=== PATIENT | female | born 1975 | race Caucasian/White ===

== ENCOUNTER 2017-08-21 11:04 | Outpatient (CLI) | payer OTHER | END 2017-08-21 11:05 | disposition home or self-care (01) | LOC: CTENTCT 11:04 | PROVIDERS: ATTEND Specialist | DX: J32.8 Other chronic sinusitis (principal) | CPT/HCPCS: 70486 ==

== ENCOUNTER 2019-04-09 17:50 | Emergency (ER) | payer OTHER ==
--- NOTE | 2019-04-09 18:48 | RAD ---
EXAM: CHEST ONE VIEW HISTORY: Chest pain COMPARISON: None FINDINGS: The cardiac silhouette and pulmonary vasculature is within normal limits. The lungs are clear. The os seous structures are intact. Tiny metallic density overlies the lower right neck which overlies the right lateral aspect of the C6 vertebral body. This may be related to prior postsurgical change. IMPRESSION: 1. No acute cardiopulmonary process. 2. Tiny linear metallic density overlying the right aspect of the C6 vertebral body. This may be rela dominic to prior postsurgical change, but clinical correlation is recommended to exclude possibility of a tiny metallic foreign body.
[2019-04-09] MEDS ORDERED: Ketorolac Tromethamine 30 MG/ML VIAL ONE (19:11)
[2019-04-09 19:18] LABS: Hemoglobin 15.5 g/dL (12.0-16.0); Mean Corpuscular HGB CONC 33.6 g/dL (32.0-36.0); Mean Corpuscular Hemoglobin 29.4 pg (27.0-31.0); Mean Corpuscular Volume 87.4 fL (78.0-98.0); RBC Distribution Width 11.9 % (11.5-14.5); Red Blood Cell (RBC) Count 5.28 mill/uL (4.20-5.40)
[2019-04-09 19:36] LABS: #Eosinphils 0.2 thou/uL (0.0-0.7); #Lymphocytes 1.7 thou/uL (1.20-3.40); %Basophils 0.4 % (0.0-1.0); %Eosinophils 1.8 % (0.0-10.0); %Lymphocytes 14.2 % (21.0-51.0); %Monocytes 8.7 % (0.0-10.0); %Neutrophils 74.9 % (42.0-75.0); Mean Platelet Volume 9.8 fL (7.4-10.4); Platelet Count 80 thou/uL (130-400); Platelet Morphology Comment Appears Decreased
[2019-04-09 19:37] LABS: ALT (SGPT) 20 U/L (8-55); AST (SGOT) 33 U/L (5-34); Albumin 4.9 g/dL (3.5-5.0); Alkaline Phosphatase 103 U/L (40-150); Anion Gap 17 mmol/L (10-20); BUN (Urea Nitrogen) 14 mg/dL (7.0-18.7); Bilirubin, Total 0.6 mg/dL (0.2-1.2); Calc. Creatinine Clearance 0 mL/min (70-130); Calcium 10.6 mg/dL (7.8-10.44); Carbon Dioxide 22 mmol/L (22-29); Chloride 99 mmol/L (98-107); Estimated GFR-MDRD 81; Globulin 3.3 g/dL (2.4-3.5); Glucose 101 mg/dL (70-105); Potassium 4.9 mmol/L (3.5-5.1); Protein, Total 8.2 g/dL (6.0-8.3); Sodium 133 mmol/L (136-145)
[2019-04-09] MEDS ORDERED: Lorazepam 2 MG/ML VIAL ONE (20:50)
[2019-04-09] MEDS ORDERED: Morphine 4 MG/ML VIAL ONE (21:38)
[2019-04-09] MEDS ORDERED: Ondansetron PF 4 MG/2 ML Vial ONE (21:38)
--- NOTE | 2019-04-10 07:33 | CT ---
PRELIMINARY REPORT/[facility]/EMERGENCY AFTER HOURS PROCEDURE: EXAM: CT Angiography Chest With Contrast EXAM DATE/TIME: 04/09/2019 11:54 PM CLINICAL HISTORY: 43 years old, female; Signs and symptoms; Dyspnea; Patient HX: F43 presents to ED with C/O chest pressure & dizziness onset today, that began after sensation of left arm tingling onset 1000. PT reports that the pain worked its way upward. PT reports currently having SOB with pain with deep breath. PT reports she has had symptoms like these before when she had high BP. PT denies nausea, cough, or fever. PT reports using a vape pen. Denies recent travel or surgery. TECHNIQUE: Imaging protocol: Axial computed tomographic angiography images of the chest with intravenous contrast using CT angiography protocol. Coronal and sagittal reformatted images were created and reviewed. 3D rendering: MIP reconstructed images were created and reviewed. COMPARISON: No relevant prior studies available. FINDINGS: Pulmonary arteries: No pulmonary emboli. Aorta: No aortic aneurysm. No aortic dissection. Lungs: Mild dependent atelectasis dorsally bilaterally. Pleural space: No pneumothorax. No pleural effusion. Heart: No cardiomegaly. No pericardial effusion. Liver: Fatty liver. Lymph nodes: Unremarkable. No enlarged lymph nodes. Bones/joints: Unremarkable. No acute fracture. Soft tissues: Breast prostheses appear grossly intact. IMPRESSION: No pulmonary emboli. No acute disease identified. Thank you for allowing us to participate in the care of your patient. Dictated and Authenticated by: Eyad Mendoza MD 04/10/2019 12:17 AM Central Time ([place] & [place]) FINAL REPORT CTA Angio Chest W WO Con History: [Chest pain and dizziness] Comparison: Chest radiograph same day Findings: CT angiogram of the chest performed after the intravenous administration of contrast. 3-D r echo provided. Impression: The findings and impression are concordant with the preliminary report. Transcribed Date/Time: 04/10/2019 7:42 AM
--- NOTE | 2019-04-11 15:14 | EKG ---
Test Reason : Blood Pressure : / mmHG Vent. Rate : 106 BPM Atrial Rate : 106 BPM P-R Int : 150 ms QRS Dur : 080 ms QT Int : 346 ms P-R-T Axes : 035 001 089 degrees QTc Int : 459 ms Sinus tachycardia Cannot rule out Anterior infarct , age undetermined Abnormal ECG Confirmed by SHAHAB MALCOLM ([id number]), senior technical editor AUGUSTO ROJAS ([id number]) on 04/11/2019 3:13:52 PM Referred By: Confirmed By:SHAHAB MALCOLM
== END 2019-04-10 00:50 | disposition home or self-care (01) ==
LOC: ERS 17:50
DX: R07.89 Other chest pain (principal); I10 Essential (primary) hypertension; E78.5 Hyperlipidemia, unspecified; G43.909 Migraine, unspecified, not intractable, without status migrainosus; F17.290 Nicotine dependence, other tobacco product, uncomplicated; Z79.899 Other long term (current) drug therapy
CPT/HCPCS: 71045; 71275; 80053; 84484; 85025; 85379; 93005; 96361; 96374; 96375; J1885; J2060; J2270; J2405

== ENCOUNTER 2020-08-08 16:33 | Inpatient (IN) | payer OTHER ==
[2020-08-08 17:08] LABS: #Basophils 0.1 thou/uL (0.0-0.2); #Eosinphils 0.1 thou/uL (0.0-0.7); #Monocytes 0.6 thou/uL (0.11-0.59); #Neutrophils 3.5 thou/uL (1.40-6.50); %Basophils 1.6 % (0.0-1.0); %Eosinophils 1.4 % (0.0-10.0); %Monocytes 10.9 % (0.0-10.0); %Neutrophils 67.1 % (42.0-75.0); Mean Corpuscular HGB CONC 33.9 g/dL (32.0-36.0); Mean Corpuscular Hemoglobin 29.8 pg (27.0-31.0); Mean Corpuscular Volume 87.9 fL (78.0-98.0); Mean Platelet Volume 7.5 fL (7.4-10.4); Platelet Count 317 thou/uL (130-400); RBC Distribution Width 11.8 % (11.5-14.5); Red Blood Cell (RBC) Count 5.03 mill/uL (4.20-5.40); White Blood Cell (WBC) Count 5.1 thou/uL (4.8-10.8)
[2020-08-08 17:29] LABS: ALT (SGPT) 13 U/L (8-55); AST (SGOT) 18 U/L (5-34); Albumin 4.5 g/dL (3.5-5.0); Alkaline Phosphatase 100 U/L (40-110); Anion Gap 12 mmol/L (10-20); BUN (Urea Nitrogen) 19 mg/dL (7.0-18.7); Bilirubin, Total 0.2 mg/dL (0.2-1.2); CK (CPK) 41 U/L (29-168); Calc. Creatinine Clearance 0 mL/min (70-130); Calcium 9.6 mg/dL (7.8-10.44); Carbon Dioxide 27 mmol/L (22-29); Chloride 101 mmol/L (98-107); Estimated GFR-MDRD 69; Glucose 148 mg/dL (70-105); Potassium 3.6 mmol/L (3.5-5.1); Protein, Total 7.5 g/dL (6.0-8.3); Sodium 136 mmol/L (136-145)
[2020-08-08 17:32] LABS: Acetaminophen Less than 6.0 mcg/mL (10.0-30.0); Alcohol Less than 10 mg/dL (Less than 10); Salicylate Less than 8.0 mg/dL (15.0-30.0)
--- NOTE | 2020-08-08 17:46 | RAD ---
Exam: Chest one view HISTORY:Confirm NG tube placement Comparison: 04/09/2019 FINDINGS: Lines and tubes: Nasogastric tube extends beyond the diaphragm. Distal tip appears to be in the gastr ic antrum. Cardiac silhouette: Normal Aorta: Unremarkable Pulmonary vessels: Normal Costophrenic angles: Clear LUNGS: No masses or consolidation. Pneumothorax: None Osseous abnormalities: None IMPRESSION: 1. Nasogastric tube terminating in the gastric antrum.
[2020-08-08] MEDS ORDERED: Scopolamine 1.5 mg/72 hour Patch TD PRN (18:09)
[2020-08-08] MEDS ORDERED: Naloxone HCl 0.4 mg/ml Vial ONE (18:10)
[2020-08-08 18:32] LABS: Bilirubin Negative (Negative); Blood, Urine Negative (Negative); Clarity Clear (Clear); Glucose, Urine (Dipstick) Normal (Negative); Ketone, Urine 10 mg/dL (Negative); Leukocyte Negative Leu/uL (Negative); Nitrite Negative (Negative); Protein, Urine (Dipstick) Negative (Neg-Trace); Specific Gravity, Urine 1.013 (1.002-1.036); Urobilinogen Normal mg/dL (Less than 2); pH, Urine 6.5 (5.0-9.0)
[2020-08-08 18:41] LABS: Amphetamine Not Detected (NotDetected); Barbiturates Screen Not Detected (NotDetected); Benzodiazepine Screen Not Detected (NotDetected); Cocaine Metabolite Screen Not Detected (NotDetected); Medtox Control Line Valid? VALID (VALID); Medtox Reader # READER 4; Methadone Not Detected (NotDetected); Methamphetamine Not Detected (NotDetected); Opiate Screen Not Detected (NotDetected); Oxycodone Screen Not Detected (NotDetected); Phencyclidine (PCP) Not Detected (NotDetected); THC/Cannabinoid Screen Detected (NotDetected); Tricyclic Screen Not Detected (NotDetected)
[2020-08-08] MEDS: Sodium Chloride 0.9% 1,000 ML IV SCH (19:43)
[2020-08-08 23:33] LABS: Anion Gap 14 mmol/L (10-20); BUN (Urea Nitrogen) 13 mg/dL (7.0-18.7); Calc. Creatinine Clearance 102 mL/min (70-130); Calcium 8.3 mg/dL (7.8-10.44); Carbon Dioxide 22 mmol/L (22-29); Chloride 106 mmol/L (98-107); Estimated GFR-MDRD 80; Glucose 111 mg/dL (70-105); Potassium 3.2 mmol/L (3.5-5.1); Sodium 139 mmol/L (136-145)
--- NOTE | 2020-08-09 00:37 | HP ---
CHIEF COMPLAINT: Suicidal attempt with drug overdose. HISTORY OF PRESENT ILLNESS: The patient is a 44-year-old female with past medical history of hypertension, hyperlipidemia, hypothyroidism, migraines, and depression, who was brought to the ER by EMS after ingesting multiple medications in a suicidal attempt. The patient states that she has been having trouble at home with her and does not want to be here anymore. The patient took medications that belong to her and her . Those medications were cefdinir, metoprolol succinate, atorvastatin, ketorolac, tramadol, promethazine, fluoxetine, lorazepam, diazepam, cyclobenzaprine, Zofran, naproxen, doxycycline, pantoprazole, prednisone, Tylenol No.4, aspirin, and butalbital. Empty bottles of all those medications were available in the ER. On presentation, the patient seems to be mildly lethargic, but able to answer all the questions appropriately. She has a flat affect. Poison Control was contacted and NG tube was placed, and the patient was given activated charcoal. REVIEW OF SYSTEMS: Negative except as noted in HPI. PAST MEDICAL HISTORY: As noted above. PAST SURGICAL HISTORY: Tonsillectomy, hysterectomy, stone removal, appendectomy, and double mastectomy with reconstruction. SOCIAL HISTORY: The patient denies alcohol use, illicit drug use, and is a current tobacco smoker. FAMILY HISTORY: Noncontributory for her current presentation. PHYSICAL EXAMINATION: GENERAL: The patient is alert and oriented x3. HEENT: Head is normocephalic and atraumatic. Extraocular muscles are intact. NECK: Supple. CHEST: Auscultation is clear bilaterally. CARDIOVASCULAR: Revealed normal S1 and S2. No murmurs, rubs, or gallops. Regular rate and rhythm. ABDOMEN: Soft, nontender, and nondistended. Bowel sounds are audible. NEUROLOGIC: Unremarkable. LABORATORY DATA: The patient's CBC and CMP were largely unremarkable and her urine tox screen was negative at that time. ASSESSMENT: 1. Suicidal attempt with drug overdose. 2. Overdose of multiple medications including nonsteroidal anti-inflammatory medications, benzodiazepines, calcium channel blockers and beta-blockers in addition to opioids. 3. History of hypertension. 4. History of hyperlipidemia. 5. History of depression. PLAN: The patient will be monitored closely in the intensive care unit. Potential side effects include bradycardia, hypotension, respiratory arrest, acute renal failure, and QTc prolongation. BMP will be monitored q.6 hours. We will also check her EKG periodically to rule out arrhythmia and QTc prolongation. I will avoid using Zofran, promethazine, or metoclopramide for management of nausea to decrease risk of QTc prolongation. I will use scopolamine patch as needed for nausea. The patient will be hydrated with normal saline at 150 mL/h. Critical Care Service were notified of the patient's admission to the ICU and her current condition. SCDs for deep venous thrombosis prophylaxis. Further recommendations depend on her clinical course. Job ID: [id number] [facility]ITAL[facility]
[2020-08-09] MEDS: Sodium Chloride 0.9% 1,000 ML IV SCH ×3 (02:15→15:20)
[2020-08-09] MEDS ORDERED: Ondansetron PF 4 MG/2 ML Vial IVP SCH (03:45)
[2020-08-09 04:48] LABS: Band 1 % (5-11); Hemoglobin 14.2 g/dL (12.0-16.0); Lymphocytes 34 % (21-51); MDiff Complete? YES; Mean Corpuscular HGB CONC 32.9 g/dL (32.0-36.0); Mean Corpuscular Hemoglobin 29.3 pg (27.0-31.0); Mean Platelet Volume 7.9 fL (7.4-10.4); Monocytes 10 % (0-10); Neutrophil 55 % (42-75); Platelet Count 311 thou/uL (130-400); Platelet Morphology Comment Appears Adequate; RBC Morphology Normal; Red Blood Cell (RBC) Count 4.85 mill/uL (4.20-5.40); White Blood Cell (WBC) Count 6.5 thou/uL (4.8-10.8)
[2020-08-09 06:38] LABS: ALT (SGPT) 14 U/L (8-55); AST (SGOT) 16 U/L (5-34); Albumin 3.5 g/dL (3.5-5.0); Alkaline Phosphatase 79 U/L (40-110); Anion Gap 13 mmol/L (10-20); BUN (Urea Nitrogen) 12 mg/dL (7.0-18.7); Bilirubin, Total 0.2 mg/dL (0.2-1.2); Calc. Creatinine Clearance 101 mL/min (70-130); Calcium 8.2 mg/dL (7.8-10.44); Carbon Dioxide 22 mmol/L (22-29); Chloride 108 mmol/L (98-107); Estimated GFR-MDRD 78; Globulin 2.4 g/dL (2.4-3.5); Glucose 88 mg/dL (70-105); Potassium 3.7 mmol/L (3.5-5.1); Protein, Total 5.9 g/dL (6.0-8.3); Sodium 139 mmol/L (136-145)
--- NOTE | 2020-08-09 11:29 | CON ---
DATE OF CONSULTATION: 08/09/2020 REASON FOR CONSULTATION: Polysubstance overdose. HISTORY OF PRESENT ILLNESS: The patient is a 44-year-old female, who presented to the emergency room last night after ingesting multiple medications including Lexapro, metoprolol, atorvastatin, Toradol, tramadol, promethazine, fluoxetine, lorazepam, diazepam, cyclobenzaprine, Zofran, naproxen, doxycycline, Protonix, prednisone, Tylenol #4, aspirin, and butalbital. It is unknown how much of each she ingested. She had an NG tube placed and was given activated charcoal. I cannot see that she has developed any significant bradyarrhythmias overnight. PAST MEDICAL HISTORY: Hypertension. PAST SURGICAL HISTORY: 1. Tonsillectomy. 2. Hysterectomy. 3. Appendectomy. 4. Mastectomy with reconstruction. SOCIAL HISTORY: Occasionally consumes alcohol. She runs a bar. She uses a Vapen. She occasionally smokes marijuana. FAMILY MEDICAL HISTORY: Unremarkable. ALLERGIES: NONE. REVIEW OF SYSTEMS: No fever, chills, nausea, vomiting, hematemesis, melena, hematochezia, hematuria, or dysuria. PHYSICAL EXAMINATION: VITAL SIGNS: Pulse has been consistently in the 60s, O2 saturation 100%, blood pressure 125/87, respiratory rate 13. HEENT: Unremarkable. NECK: No adenopathy or JVD. LUNGS: Clear. CARDIAC: S1, S2. Regular. ABDOMEN: Soft and nontender to palpation. EXTREMITIES: No clubbing, cyanosis, or edema. NEUROLOGIC: Nonfocal. She is alert and oriented x3. Appears in no distress. LABORATORY DATA: Sodium 139, potassium 3.7, chloride 108, CO2 of 22, BUN 12, creatinine 0.8, glucose 88. White blood cell count 6.5, hematocrit 43.2, and platelet count 311. Tox screen was positive for cannabinoids. Interestingly, was negative for benzodiazepines and tricyclics. ASSESSMENT: Reported polysubstance overdose without any sequelae so far. PLAN: 1. Continue monitoring in ICU for 24 more hours. 2. IV fluids. Job ID: [id number]
[2020-08-09 11:47] VITALS: BMI 23.8
--- NOTE | 2020-08-09 13:26 | PDOC.HOSPP ---
- Subjective Encounter Date: 08/09/20 Encounter Time: 11:15 Subjective: oriented well this morning, no sob or chest pain or palp at bedside - Objective Vital Signs & Weight: Vital Signs (12 hours) Temp Pulse Resp BP Pulse Ox 08/09/20 13:20 98.3 F 64 15 132/92 H 97 08/09/20 10:36 65 15 125/86 100 08/09/20 08:00 98.3 F 100 Weight Admit Weight 155 lb 6.814 oz Weight 156 lb 8.451 oz Most Recent Monitor Data Heart Rate from ECG 68 NIBP 146/99 NIBP BP-Mean 114 Respiration from ECG 15 SpO2 100 I&O: 08/08/20 08/09/20 08/10/20 06:59 06:59 06:59 Intake Total 1582 Output Total 1010 250 Balance 572 -250 Result Diagrams: 08/09/20 03:10 08/09/20 05:23 Additional Labs: Accuchecks 08/09/20 08/09/20 08/09/20 13:12 05:57 00:11 POC Glucose 103 H 87 92 08/08/20 08/08/20 22:17 19:53 POC Glucose 82 130 H Hospitalist ROS - Medication Medications: Active Medications Generic Name Dose Route Start Last Admin Trade Name Freq PRN Reason Stop Dose Admin Sodium Chloride 1,000 mls @ 150 mls/hr 08/08/20 18:15 08/09/20 08:45 Normal Saline 0.9% IV 1,000 mls .[id number] SALLY Administration - Exam General Appearance: awake alert Eye: PERRL, anicteric sclera ENT: no oropharyngeal lesions, dry oral mucosa Neck: supple, no JVD Heart: RRR, no murmur Respiratory: no wheezes, no rales Gastrointestinal: soft, non-tender, non-distended, normal bowel sounds Extremities: no cyanosis, no edema Neurological: cranial nerve grossly intact, no focal deficits Psychiatric: A&O x 3 Hosp A/P (1) Drug overdose, intentional Code(s): T50.902A - POISONING BY UNSP DRUG/MEDS/BIOL SUBST, SELF-HARM, INIT Status: Acute Qualifiers: Encounter type: subsequent encounter Qualified Code(s): T50.902D - Poisoning by unspecified drugs, medicaments and biological substances, intentional self-harm, subsequent encounter (2) Suicidal ideation Code(s): R45.851 - SUICIDAL IDEATIONS Status: Acute (3) Major depression Code(s): F32.9 - MAJOR DEPRESSIVE DISORDER, SINGLE EPISODE, UNSPECIFIED Status: Acute Qualifiers: Active/Remission status: currently active Major depression episode severity: severe Psychotic features: without psychotic features (4) HTN (hypertension) Code(s): I10 - ESSENTIAL (PRIMARY) HYPERTENSION Status: Chronic Qualifiers: Hypertension type: essential hypertension Qualified Code(s): I10 - Essential (primary) hypertension (5) Dyslipidemia Code(s): E78.5 - HYPERLIPIDEMIA, UNSPECIFIED Status: Chronic - Plan hemostable oral diet no prior h/o suicidal attempts or psychiatric hospitalization covrajesh 19 made their bussiness broke x 5 months, which led to arguments with and finally she decided to take meds to end her life may tx to telemetry, needs another 24hrs of monitoring before MR eval
[2020-08-09 16:26] LABS: SARS-CoV-2 MS2 Positive; SARS-CoV-2 N Gene Negative; SARS-CoV-2 S Gene Negative; SARS-CoV-2 by NAA Not Detected (NotDetected); SARS-CoV-2 orf1ab Negative
[2020-08-10 04:35] LABS: Eosinophils 5 % (0-10); Hemoglobin 13.5 g/dL (12.0-16.0); Lymphocytes 52 % (21-51); MDiff Complete? YES; Mean Corpuscular HGB CONC 32.8 g/dL (32.0-36.0); Mean Corpuscular Hemoglobin 29.1 pg (27.0-31.0); Mean Corpuscular Volume 88.6 fL (78.0-98.0); Monocytes 9 % (0-10); Neutrophil 34 % (42-75); Platelet Count 291 thou/uL (130-400); Platelet Morphology Comment Appears Adequate; RBC Distribution Width 11.9 % (11.5-14.5); Red Blood Cell (RBC) Count 4.63 mill/uL (4.20-5.40); White Blood Cell (WBC) Count 5.6 thou/uL (4.8-10.8)
[2020-08-10] MEDS: Sodium Chloride 0.9% 1,000 ML IV SCH (06:04)
[2020-08-10] MEDS ORDERED: Bisacodyl 10 MG SUPP PR PRN (11:28)
--- NOTE | 2020-08-10 12:55 | PDOC.HOSPP ---
- Subjective Encounter Date: 08/10/20 Encounter Time: 11:00 Subjective: no sob or chest pain or palp or nausea/abd pain is eating well and amb in room - Objective Vital Signs & Weight: Vital Signs (12 hours) Temp Pulse Resp BP Pulse Ox 08/10/20 12:21 98.3 F 55 L 12 136/90 99 08/10/20 08:03 98.3 F 57 L 12 126/81 99 08/10/20 04:00 98.4 F 56 L 20 120/78 97 Weight Admit Weight 155 lb 6.814 oz Weight 163 lb 8 oz Most Recent Monitor Data Heart Rate from ECG 68 NIBP 146/99 NIBP BP-Mean 114 Respiration from ECG 15 SpO2 100 I&O: 08/09/20 08/10/20 08/11/20 06:59 06:59 06:59 Intake Total 1582 Output Total 1010 250 Balance 572 -250 Result Diagrams: 08/10/20 03:24 08/09/20 05:23 Additional Labs: Accuchecks 08/10/20 08/10/20 08/09/20 08:18 06:06 20:33 POC Glucose 167 H 83 109 H 08/09/20 08/09/20 17:13 13:12 POC Glucose 99 103 H - Exam General Appearance: awake alert Eye: PERRL, anicteric sclera ENT: no oropharyngeal lesions, moist mucosa Neck: supple, no JVD Heart: RRR, no murmur Respiratory: no wheezes, no rales Gastrointestinal: soft, non-tender, non-distended, normal bowel sounds Extremities: no cyanosis, no edema Neurological: cranial nerve grossly intact, no focal deficits Psychiatric: A&O x 3 Hosp A/P (1) Drug overdose, intentional Code(s): T50.902A - POISONING BY UNSP DRUG/MEDS/BIOL SUBST, SELF-HARM, INIT Status: Resolved Qualifiers: Encounter type: subsequent encounter Qualified Code(s): T50.902D - Poisoning by unspecified drugs, medicaments and biological substances, i ntentional self-harm, subsequent encounter (2) Suicidal ideation Code(s): R45.851 - SUICIDAL IDEATIONS Status: Resolved (3) Major depression Code(s): F32.9 - MAJOR DEPRESSIVE DISORDER, SINGLE EPISODE, UNSPECIFIED Status: Acute Qualifiers: Active/Remission status: currently active Major depression episode severity: severe Psychotic features: without psychotic features (4) HTN (hypertension) Code(s): I10 - ESSENTIAL (PRIMARY) HYPERTENSION Status: Chronic Qualifiers: Hypertension type: essential hypertension Qualified Code(s): I10 - Essential (primary) hypertension (5) Dyslipidemia Code(s): E78.5 - HYPERLIPIDEMIA, UNSPECIFIED Status: Chronic - Plan hemostable oral diet no prior h/o suicidal attempts or psychiatric hospitalization covid 19 made their bussiness broke x 5 months, which led to arguments with and finally she decided to take meds to end her life may dc anytime if cleared by
[2020-08-10] MEDS ORDERED: Polyethylene Glycol 3350 17 GM Packet PO SCH (13:45)
--- NOTE | 2020-08-10 15:48 | DIS ---
DATE OF ADMISSION: 08/08/2020 DATE OF DISCHARGE: 08/10/2020 DISCHARGE DISPOSITION: Home. PRIMARY DISCHARGE DIAGNOSES: Intentional prescription medication overdose with suicidal intent, severe depression, hypertension, dyslipidemia. PROCEDURES DONE DURING HOSPITALIZATION: Chest x-ray done on the day of admission showed no acute cardiopulmonary abnormality. H and H 13 and 41, platelet count 291, MCV is 88. BUN 12, creatinine 0.8, albumin 3.5. Liver enzymes within normal limits. TSH 3.41. Urine drug screen was positive for cannabinoids. Plasma alcohol less than 10. Acetaminophen less than 6. Salicylates less than 8. COVID-19 PCR was not detected on 08/08/2020. DISCHARGE PLAN: [facility] will be following up with the patient on a daily basis. She needs to follow up with her primary care physician in 1 week. [facility] will also set her up for counseling sessions and outpatient appointment with psychiatrist shortly. BRIEF COURSE DURING HOSPITALIZATION: The patient initially was brought to the emergency room on 08/09/2020 after EMS brought her with history of the patient ingesting multiple medications with suicidal intent. The patient apparently took a combination of Omnicef, metoprolol succinate, atorvastatin, ketorolac, Ultram, promethazine, fluoxetine, lorazepam, diazepam, Flexeril, Zofran, Naprosyn, doxycycline, Protonix, prednisone, Tylenol No.4, aspirin, and butalbital. It is unclear how many pills of all of this the patient took, but apparently all the bottles were empty when EMS arrived at home. She was mildly lethargic when EMS arrived. Poison Control was contacted on arrival in the ER and an NG tube was placed and she was given activated charcoal. She was initially admitted to ICU. She was closely monitored on telemetry. She has not had any untoward events. She was later downgraded to telemetry. She has remained hemodynamically stable. She is ambulating and eating well prior to discharge. [facility] was consulted this afternoon. They have a safety plan and [facility] will be visiting her on a daily basis and they will also arrange for her to get counseling and start outpatient psychiatrist appointment. 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 She has never been hospitalized in a psychiatric facility in the past. At the time of discharge, she does not have any suicidal ideation or intent or plan. Please see a [id number] documentation on [employer] for the day of discharge. Job ID: [id number]
[2020-08-10 16:24] VITALS: BP 153/97; TEMP 98
[2020-08-10] MEDS ORDERED: Docusate 100 MG CAP PO SCH (21:00)
[2020-08-11] MEDS ORDERED: Polyethylene Glycol 3350 17 GM Packet PO SCH (09:00)
[2020-08-11] MEDS ORDERED: Escitalopram Oxalate 20 mg Tablet PO SCH (09:00)
--- NOTE | 2020-08-12 06:32 | PQF ---
CLINICAL DOCUMENTATION CLARIFICATION FORM: Dear : Tommie Lieberman Date / Time: 08/12/20 0631 Please exercise your independent, professional judgment in responding to the clarification form. Clinical indicators are provided on the bottom of this form for your review Please check appropriate box(es): [ ]x Encephalopathy: Etiology: [ ] Metabolic [ ] Toxic [ x ] Drug Overdose [ ] Unspecified [ ] Other (please specify) [ ] Transient Alteration of Awareness [ ] Other diagnosis [ ] Unable to determine In addition, please specify: Present on Admission (POA): [ x ] Yes [ ] No [ ] Unable to determine Physician Signature: Date/Time: For continuity of documentation, please document condition throughout progress notes and discharge summary. Thank You. To be completed by CDI/Coding staff for physician review: Present Clinical Indicators - Signs / Symptoms / Labs Results and Location in Medical Record [X] BP 136/95, Pulse 86, Resp 15, Temp 99.4 Vital signs 08/08 [X] Toxicology : Positive Salicylates, Acetaminophen, Cannabinoids Laboratory 08/08 [X] Suicidal attempts with drug overdose H&p p1 Dr Cuellar 08/08 [X] The pt took medications that belong to her and her H&p p1 Dr Cuellar 08/08 [X] Medications were cefdinir, metoprolol succinate, atowastatin, ketordac, tramadol, promethazine, fluoxetine, lorazepam, diazepam, cydoberzaprine, Zofran, naproxen, doxycydine, pantoprazde, pretisone, Tylenol No.4, aspirin, and butalbital. Empty bottles of all those medications H&p p1 Dr Cuellar 08/08 [X] The pt seems to be mildly lethargic, but able to answer all question appropriately H&p p1 Dr Cuelalr 08/08 [X] She has a flat affect H&p p1 Dr Cuellar 08/08 [X] Patient is somewhat slow in response ED Notes 08/08 [X] Somnolent ED Notes 08/08 Present Risk Factors Results and Location in Medical Record [X] HTN H&p p1 Dr Cuellar 08/08 [X] Hypothyroidism H&p p1 Dr Cuellar 08/08 [X] HLD H&p p1 Dr Cuellar 08/08 [X] Depression H&p p1 Dr Cuellar 08/08 [X] Migraines H&p p1 Dr Cuellar 08/08 Present Treatments Results and Location in Medical Record [X] IVF NS 1L JAN 11 [X] IV Narcan 0.4mg JAN 11 [X] Charloal- Actidose-Aqua 25 mg oral JAN 11 [X] Toxicology Laboratory 08/08 [X] Admitted to ICU H&p p2 Dr Cuellar 08/08 CDS/Loss Prevention Manager Signature: Piedad Ngo Purviheydiwhitney Phone #: ext [phone] Date/Time: 08/12/2020 0631 This is a permanent part of the Medical Record [facility]
== END 2020-08-10 17:55 | disposition home or self-care (01) | DRG 917 ==
LOC: ERS 16:33 → CCU 17:51 → 2NO 08-09 13:11
PROVIDERS: ADMIT Internal Medicine; ATTEND Internal Medicine
DX: T36.1X2A Poisoning by cephalosporins and other beta-lactam antibiotics, intentional self-harm, initial encounter (principal); G92 Toxic encephalopathy; T44.7X2A Poisoning by beta-adrenoreceptor antagonists, intentional self-harm, initial encounter; T42.2X2A Poisoning by succinimides and oxazolidinediones, intentional self-harm, initial encounter; T46.6X2A Poisoning by antihyperlipidemic and antiarteriosclerotic drugs, intentional self-harm, initial encounter; T39.8X2A Poisoning by other nonopioid analgesics and antipyretics, not elsewhere classified, intentional self-harm, initial encounter; T40.422A Poisoning by tramadol, intentional self-harm, initial encounter; T42.4X2A Poisoning by benzodiazepines, intentional self-harm, initial encounter; T48.1X2A Poisoning by skeletal muscle relaxants [neuromuscular blocking agents], intentional self-harm, initial encounter; T45.0X2A Poisoning by antiallergic and antiemetic drugs, intentional self-harm, initial encounter; T39.312A Poisoning by propionic acid derivatives, intentional self-harm, initial encounter; T36.4X2A Poisoning by tetracyclines, intentional self-harm, initial encounter; T47.1X2A Poisoning by other antacids and anti-gastric-secretion drugs, intentional self-harm, initial encounter; T38.0X2A Poisoning by glucocorticoids and synthetic analogues, intentional self-harm, initial encounter; T39.1X2A Poisoning by 4-Aminophenol derivatives, intentional self-harm, initial encounter; T39.012A Poisoning by aspirin, intentional self-harm, initial encounter; T42.3X2A Poisoning by barbiturates, intentional self-harm, initial encounter; E78.5 Hyperlipidemia, unspecified; F32.9 Major depressive disorder, single episode, unspecified; I10 Essential (primary) hypertension; Z20.828 Contact with and (suspected) exposure to other viral communicable diseases; E03.9 Hypothyroidism, unspecified; G43.909 Migraine, unspecified, not intractable, without status migrainosus; F17.290 Nicotine dependence, other tobacco product, uncomplicated; R53.83 Other fatigue; Z90.710 Acquired absence of both cervix and uterus; Z79.899 Other long term (current) drug therapy; Z90.49 Acquired absence of other specified parts of digestive tract; Z90.10 Acquired absence of unspecified breast and nipple
CPT/HCPCS: 36415; 36416; 51702; 71045; 80053; 80306; 80307; 81003; 82550; 84443; 85007; 85025; 85027; 87635; 93005; 96374; J2310; J2405; U0003

== ENCOUNTER 2022-06-05 12:57 | Emergency (ER) | payer OTHER, SELFPAY ==
[~2022-06-05 12:57] MED LIST: Iopamidol-370 76% 500 ML 1 ML ONE
[2022-06-05 15:35] LABS: #Basophils 0.1 thou/uL (0.0-0.2); #Eosinphils 0.1 thou/uL (0.0-0.7); #Lymphocytes 1.6 thou/uL (1.20-3.40); #Monocytes 0.3 thou/uL (0.11-0.59); #Neutrophils 2.7 thou/uL (1.40-6.50); %Basophils 1.5 % (0.0-1.0); %Lymphocytes 32.5 % (21.0-51.0); %Monocytes 7.1 % (0.0-10.0); %Neutrophils 55.9 % (42.0-75.0); Hemoglobin 11.1 g/dL (12.0-16.0); Mean Corpuscular HGB CONC 28.7 g/dL (32.0-36.0); Mean Corpuscular Hemoglobin 26.4 pg (27.0-31.0); Mean Platelet Volume 9.7 fL (7.4-10.4); Platelet Count 179 thou/uL (130-400); RBC Distribution Width 11.5 % (11.5-14.5); White Blood Cell (WBC) Count 4.8 thou/uL (4.8-10.8)
[2022-06-05 15:51] LABS: Hypochromia SLIGHT = 6-15 cells (100X) (0-5/hpf); MDiff Complete? YES; Platelet Morphology Comment Appears Adequate; Polychromasia SLIGHT = 2-3 cells (100X) (0-2/hpf)
[2022-06-05 16:52] LABS: ALT (SGPT) 11 U/L (8-55); AST (SGOT) 14 U/L (5-34); Albumin 4.3 g/dL (3.5-5.0); Alkaline Phosphatase 58 U/L (40-110); Anion Gap 11 mmol/L (10-20); BUN (Urea Nitrogen) 10 mg/dL (7.0-18.7); Bilirubin, Total 0.8 mg/dL (0.2-1.2); Calc. Creatinine Clearance 0 mL/min (70-130); Calcium 9.3 mg/dL (7.8-10.44); Carbon Dioxide 28 mmol/L (22-29); Chloride 102 mmol/L (98-107); Estimated GFR 99; Globulin 2.3 g/dL (2.4-3.5); Glucose 87 mg/dL (70-105); Lipase 34 U/L (8-78); Potassium 4.2 mmol/L (3.5-5.1); Protein, Total 6.6 g/dL (6.0-8.3); Sodium 137 mmol/L (136-145)
[2022-06-05 18:47] LABS: Bilirubin Negative (Negative); Blood, Urine Negative (Negative); Clarity Clear (Clear); Glucose, Urine (Dipstick) Normal (Negative); Ketone, Urine 10 mg/dL (Negative); Leukocyte Negative Leu/uL (Negative); Nitrite Negative (Negative); Protein, Urine (Dipstick) Negative (Neg-Trace); Urobilinogen Normal mg/dL (Less than 2); pH, Urine 7.5 (5.0-9.0)
[2022-06-05 18:53] LABS: Specific Gravity, Urine 1.044 (1.002-1.036)
== END 2022-06-05 18:36 | disposition home or self-care (01) ==
LOC: ERS 12:57
DX: K29.00 Acute gastritis without bleeding (principal); I10 Essential (primary) hypertension; E03.9 Hypothyroidism, unspecified; E78.5 Hyperlipidemia, unspecified; F17.290 Nicotine dependence, other tobacco product, uncomplicated
CPT/HCPCS: 36415; 71045; 74177; 80053; 81003; 83690; 84443; 84484; 85025; 93005; 94760; 96360; Q9967